=== PATIENT | male | born 1950 | race Caucasian/White ===

== ENCOUNTER 2017-05-02 08:54 | Day surgery (SDC) | payer MEDICARE ==
[2017-05-02] VITALS (8 sets, daily range): BP systolic 130–142; BP diastolic 70–88; PULSE 65–84; RESP 11–17; O2SAT 94–98
[~2017-05-02] VITALS: Ht 188 cm; Wt 90.2 kg
--- NOTE | 2017-05-02 08:30 | PCM.HPANE ---
Patient Data Surgeon Admitting Provider: Attending Provider:Zackary Herrera MD Primary Care Physician:David Other Provider:Essence Paulson Anesthesia Reason for Visit Right Inguinal Hernia Ht/WT & BMI Height (Feet): 6 Height (Inches): 2 Weight (Kilograms): 83.9 Body Mass Index 23.00 Allergies Coded Allergies: No Known Allergies (Unverified , 05/01/17) Past Anesthesia History Anesthesia History: Denies:: Abnormal Airway, Anesthesia Reactions, Difficult Intubation, Fam Anesthesia Reaction, Fam Malignant Hypertherm, Malignant Hyperthermia Diabetes History Hx Diabetes?: No MRSA MRSA: No Medications Reported Medications Acetaminophen (Tylenol Arthritis)650 Mg Tablet.er650 Mg PO DAILY PRN For Pain 05/01/17 Omeprazole 20 Mg Capsule.dr20 Mg PO DAILY Ref 0 05/01/17 History History of ENT Problems?: No HEENT History: Denies:: Hearing Problem Denture Type: None Teeth Condition: Within Normal Limits Hx of Heart Problems?: No Cardiovascular History: Denies:: AICD Abdominal Aortic Aneurism Atrial Fibrillation Cardiac Surgery Chest Pain Congestive Heart Failure Coronary Artery Disease Edema Heart Murmur Hypertension Irregular Heartbeat Pacemaker Peripheral Vascular Rheumatic Fever Thrombophlebitis Valvular Heart Disease Hx of Respiratory Problem?: No Respiratory History: Denies:: Asthma COPD Chest Surgery Cough Dyspnea Emphysema Hemoptysis Oxygen Administration Pneumonia Pulmonary Embolism Tuberculosis Use of C-PAP Machine Use of Inhalers / NEBS Hx Neurologic Problems?: No Hx of GI Problems?: Yes Hx of Problems?: No Skin History: Denies:: History Skin Disorders? Pressure Ulcers Hx Musculoskeletal Problems?: No Hx of Psycho/Social Problems?: No Hx Surgeries?: Yes Hx Any Other Health Problems?: No Other History: Denies:: Cancer Endocrine Disease Hospitalization Thyroid Disease Hx Diabetes: No Hx Alcohol Use: Yes Stop/Bang S-Snoring: Do You Snore Loudly: Yes T-Tired: feel tired, fatigued: No O-Obsered: Observed not breath: No P-Blood Pressure: treated: No B- Body Mass Index > 35 kg/m2: No A- Age over 50: Yes N- Neck Large Circumference: No G- Gender Male: Yes MATTHIEU Total Score: 3 Risk Assessment Category Category 1A: Patient has history of documented sleep apnea, and HAS NOT received any narcotic, sedative or anesthesia administration during this stay. Category 1B: Patient has history of documented sleep apnea, and HAS received any narcotic , sedative or anesthesia administration during this stay Category 2: Patient has SUSPECTED Obstructive Sleep Apnea, and HAS received any narcotic , sedative or anesthesia administration during this stay. Category 3: Patient has SUSPECTED Obstructive Sleep Apnea and HAS NOT received narcotic, sedative or anesthesia administration during this stay. Category 4: Outpatient in Procedural Areas with known sleep apnea or who screen positive for High Risk via the STOP/BANG questionnaire. Exam Exam General Appearance: Alert, Oriented X3, Cooperative HEENT/AIRWAY: MP 2, Neck Movement (from), Mouth Opening (wnl) Lungs: Clear to Auscultation Heart: Exam Unremarkable Plan Impression Patient chart reviewed, patient interviewed and anesthestic plan with risks, benefits, and alternatives discussed, and informed consent obtained. ASA Physical Status: ASA2 Mod Systemic Disease Anesthetic Plan: GA Bene/Risks/Altern/Consents: Yes HP Complete Prior to Induction: Yes Jose Schilling MD May 02, 2017 08:30
[~2017-05-02 08:54] MED LIST: ACET-2766 PO; CeFAZolin Inj 2 GM in IV Premix 1 EACH IV SCH; OMEP20CA11 PO
[2017-05-02] MEDS ORDERED: fentaNYL-PF 50 mCg/mL 2 mL Inj ONE (08:55)
[2017-05-02] MEDS ORDERED: Propofol 10,000 mCg/mL 20 mL Inj ONE (08:55)
[2017-05-02] MEDS: Lactated Ringer's 1,000 ML IV SCH ×2 (09:03→11:03)
[2017-05-02] MEDS ORDERED: hydrALAZINE 20 mg/mL Inj IVPUSH PRN (10:40)
[2017-05-02] MEDS ORDERED: Lactated Ringer's 1,000 ML IV SCH (10:40)
[2017-05-02] MEDS ORDERED: Lactated Ringer's 500 ML IV PRN (10:40)
[2017-05-02] MEDS ORDERED: Dexamethasone 4 mg/mL Inj IVPUSH PRN (10:40)
[2017-05-02] MEDS ORDERED: fentaNYL-PF 50 mCg/mL 2 mL Inj IVPUSH PRN (10:40)
[2017-05-02] MEDS ORDERED: EPHEDrine Sulfate 50 mg/mL Inj IVPUSH PRN (10:40)
[2017-05-02] MEDS ORDERED: Labetalol 5 mg/mL 4 mL Inj IV PRN (10:40)
[2017-05-02] MEDS ORDERED: HYDROmorphone 1 mg/mL Inj IVPUSH PRN (10:40)
[2017-05-02] MEDS ORDERED: Phenylephrine 10,000 mCg/mL Inj IVPUSH PRN (10:40)
[2017-05-02] MEDS ORDERED: Ondansetron 2 mg/mL 2 mL Inj IVPUSH PRN (10:40)
[2017-05-02] MEDS ORDERED: Atropine 0.4 mg/mL Inj IVPUSH PRN (10:40)
[2017-05-02] MEDS ORDERED: Bupivacaine-MPF 0.25% 30 mL Inj INFILTRATE ONE (11:03)
[2017-05-02] MEDS ORDERED: oxyCODONE-Acetamin 5-325 mg Tablet PO PRN (11:45)
--- NOTE | 2017-05-02 11:53 | OP ---
[address] [id number] OPERATIVE REPORT PATIENT: ROMAIN SERRATO : 1950 MR#: [id number] ADMIT: 05/02/2017 JOB ID: [id number] DATE OF SURGERY: 05/02/2017 ANESTHESIA: General. PREOPERATIVE DIAGNOSIS(ES): Symptomatic right inguinal hernia. POSTOPERATIVE DIAGNOSIS(ES): Symptomatic right inguinal hernia (direct). OPERATION: Open repair of right inguinal hernia using mesh. SURGEON: Zackary Herrera MD CONTACT LENS TECHNICIAN: Vic Winters PA-C. (The virtual customer assistant was required for the safe and timely completion of the case.) COMPLICATIONS: None. ESTIMATED BLOOD LOSS: Less than 5 mL. CONDITION: Satisfactory. FINDINGS: There was a large direct defect. The hernia was repaired using the UltraPro hernia system. INDICATIONS: The patient is a 66-year-old man who 8 or 9 months ago developed a right groin lump accompanied by some right groin pain. He noticed the lump would come and go. He eventually came and saw me and was diagnosed with an inguinal hernia. Because of his symptoms, he elected to undergo repair. OPERATIVE TECHNIQUE: The patient was taken in to the operating room and placed in supine position. General anesthesia was administered and perioperative antibiotics were given. The abdomen and groin were prepped and draped in a standard surgical fashion and a procedure pause performed. Local anesthetic was injected. A right inguinal incision was made and dissection carried down through the skin subcutaneous tissue. The aponeurosis of the external oblique was opened in line with the fibers to open up the external ring. The cord was circumferentially dissected free. There was a very large direct defect. The cord was investigated, and no hernia sac was identified. I then trimmed the outer mesh of the UltraPro hernia system to the appropriate size and shape. The inner disk was placed directly through the defect into the preperitoneal space. The outer mesh was then secured in place using interrupted 3-0 PDS sutures. The result was a nice re-creation of the floor with a nice re-creation of the internal ring. The aponeurosis of the external oblique was then closed with a running 3-0 Vicryl. Local anesthetic was injected. Sepideh's was closed with 3-0 Vicryl followed by a running 4-0 Monocryl for the skin. The entire procedure was well tolerated without complication.
[2017-05-02] MEDS ORDERED: HYDROmorphone 0.5 mg/0.5 mL iSecure Syringe ONE (12:21)
--- NOTE | 2017-05-02 12:25 | PCM.ANEP1 ---
Post Anesthesia PACU Phase 1 Assessment Vital Signs Vital Signs Date Time Temp Pulse Resp B/P Pulse Ox O2 Delivery O2 Flow Rate FiO2 05/02/17 12:04 76 14 136/81 97 Room Air 05/02/17 11:55 75 17 130/78 95 Room Air 05/02/17 11:50 77 13 140/80 94 Room Air 05/02/17 11:45 36.5 84 17 140/84 96 Room Air 05/02/17 09:17 36.6 72 16 141/88 96 Room Air Anesthetic Administered: GA Level of Alertness: Awake, talking ZAIDI's with Equal Strength: Yes Pain: No Nausea or Vomiting: No CV Function & Hydration Stable: Yes Airway Device: Oxygen Delivery: Room Air Lungs: Normal Air Movement PACU Phase 2 Assessment Complications: No Follow up Care: No Patient Instructions Provided: N/A Jose Schilling MD May 02, 2017 12:25
== END 2017-05-02 23:59 | disposition home or self-care (01) ==
LOC: SAS 08:54
PROVIDERS: ATTEND General Practice
DX: K40.90 Unilateral inguinal hernia, without obstruction or gangrene, not specified as recurrent (principal); K21.9 Gastro-esophageal reflux disease without esophagitis; Z87.891 Personal history of nicotine dependence
CPT/HCPCS: 49505; C1781; J0690; J1100; J1170; J2405; J3010; J7120